=== PATIENT | female | born 1985 | race Asian ===

== ENCOUNTER 2016-07-27 20:53 | Emergency (ER) | payer BC ==
[~2016-07-27] VITALS: Ht 157.5 cm; Wt 55.3 kg
[~2016-07-27 20:53] MED LIST: BENADRYL25 MG PO; COLACE100 MG PO; OMEPRAZOLE40 M1 PO; PEPCID40 MG PO; PREDNISONE20 MG PO; PRENATAL TABLE1 EAC3 PO; PRILOSEC20 MG PO; PROMETHAZINE HC25 M1 PO; Vicodin,Norco 5/325 PO
[2016-07-27 21:16] LABS: MCH 24.9 PG (29.0-34.0); MCHC 34.7 G/DL (30.0-36.0); MCV 71.6 FL (83-99); MEAN PLAT.VOLUME 8.7 uM^3 (9.5-12.4); PLATELET COUNT 344 K/uL (156-360); RBC DIS.WIDTH-CV 14.1 % (11.8-14.6); RBC DIS.WIDTH-SD 36.6 % (39-53); RED BLOOD COUNT 5.31 M/uL (3.80-5.20); WHITE BLOOD COUNT 7.2 K/uL (4.1-10.2)
[2016-07-27 21:27] LABS: CHLORIDE 105 mEq/L (99-109); POTASSIUM 3.7 mEq/L (3.7-5.4); SODIUM 140 mEq/L (136-147)
[2016-07-27 21:29] LABS: GLUCOSE 89 mg/dL (70-99)
[2016-07-27 21:30] LABS: ANION GAP 10 MEQ/L (2-14)
[2016-07-27 21:31] LABS: TOTAL BILIRUBIN 0.6 mg/dL (0.0-1.0)
[2016-07-27 21:33] LABS: ALKALINE PHOSPHATASE 50 IU/L (3-129); GFR ESTIMATE (CALCULATED) > 59 mL/min/
[2016-07-27 21:34] LABS: UREA NITROGEN (BUN) 13 mg/dL (9-23)
[2016-07-27 21:41] LABS: QUANTITATIVE HCG < 4.0 MIU/ML
[2016-07-27 22:16] LABS: ADD MIUA? YES; BILIRUBIN NEGATIVE; BLOOD SMALL; COLOR STRAW ((YELLOW)); GLUCOSE (STRIP) NEGATIVE; KETONES NEGATIVE; LEUKOCYTES TRACE; NITRITE NEGATIVE; PROTEIN (STRIP) NEGATIVE; SPECIFIC GRAVITY 1.005 (1.000-1.030); UROBILINOGEN 0.2 MG/DL (0.2-1.0)
[2016-07-27 22:32] LABS: BACTERIA RARE /HPF; EPITHELIAL CELLS 1+ /HPF; MUCUS TRACE /LPF; RED BLOOD CELLS 0-5 /HPF (0-5); UCUL ADDED? NO; WHITE BLOOD CELLS 0-5 /HPF (0-5)
[2016-07-27] MEDS ORDERED: ZOFRAN ODT4 MG PO (23:20)
[2016-07-27] MEDS ORDERED: BENTYL20 MG PO (23:20)
[2016-07-27 23:32] VITALS: BP 118/74
== END 2016-07-27 23:56 | disposition home or self-care (01) ==
LOC: EME 20:53
DX: K90.0 Celiac disease (principal)
CPT/HCPCS: 74177; 76705; 80053; 81003; 84443; 84702; 85027; 99281; 99284; J2405; J7030; S0028

== ENCOUNTER 2017-07-20 20:12 | Emergency (ER) | payer OTHER, BC ==
[~2017-07-20] VITALS: Ht 154.9 cm; Wt 59.7 kg
[~2017-07-20 20:12] MED LIST changes: +BENTYL20 MG PO; +ZOFRAN ODT4 MG PO
[2017-07-21] VITALS: BP 135/78
== END 2017-07-21 | disposition home or self-care (01) ==
LOC: EME 20:12
DX: S16.1XXA Strain of muscle, fascia and tendon at neck level, initial encounter (principal); S29.012A Strain of muscle and tendon of back wall of thorax, initial encounter; V49.50XA Passenger injured in collision with unspecified motor vehicles in traffic accident, initial encounter; Y92.410 Unspecified street and highway as the place of occurrence of the external cause; Z88.6 Allergy status to analgesic agent; Z88.5 Allergy status to narcotic agent
CPT/HCPCS: 72040; 72070; 99281; 99283